=== PATIENT | female | born 1965 | race Caucasian/White ===

== ENCOUNTER 2017-06-20 16:28 | Emergency (ER) | payer MEDICAID ==
[~2017-06-20] VITALS: Ht 162.6 cm; Wt 72.6 kg
[2017-06-20 17:25] VITALS: Ht 162.6 cm; Wt 72.6 kg
[2017-06-20 21:42] VITALS: BP 120/77
== END 2017-06-20 21:42 | disposition home or self-care (01) ==
LOC: ED 16:28
DX: J40 Bronchitis, not specified as acute or chronic (principal)

== ENCOUNTER 2018-08-06 18:38 | Emergency (ER) | payer OTHER ==
[~2018-08-06] VITALS: Ht 167.6 cm; Wt 83.0 kg
[2018-08-06 19:08] VITALS: Ht 167.6 cm; Wt 83.0 kg
[2018-08-06 20:39] LABS: BASOPHIL % 0.3 % (0-2); PLATELET COUNT 273 x10^3mcL (130-400); RED CELL DISTRIBUTION WIDTH 12.4 % (11.5-14.5)
[2018-08-06 20:53] LABS: CALCIUM 8.6 mg/dL (8.5-10.1); CARBON DIOXIDE 29.5 mmol/L (21-32); CHLORIDE SERUM 106 mmol/L (98-107); CREATININE SERUM 0.7 mg/dL (0.6-1.0); GFR1 > 60 mL/min; GLUCOSE SERUM 98 mg/dL (74-106); SODIUM SERUM 143 mmol/L (136-145)
[2018-08-06 20:58] LABS: ALBUMIN 4.2 g/dL (3.4-5.0); ALKALINE PHOSPHATASE 122 U/L (46-116); ALT/SGPT 48 U/L (14-59); AST/SGOT 28 U/L (15-37); BILIRUBIN TOTAL 0.2 mg/dL (0.20-1.00); TOTAL PROTEIN, SERUM 7.8 g/dL (6.4-8.2)
[2018-08-06 22:06] LABS: microscopic required? NO
[2018-08-06 22:39] LABS: UA SPECIFIC GRAVITY 1.015 (1.005-1.035); urine erythrocyte NEGATIVE (NEGATIVE)
[2018-08-07] VITALS: BP 103/62
== END 2018-08-07 | disposition home or self-care (01) ==
LOC: ED 18:38
PROVIDERS: Emergency Medicine
DX: B34.9 Viral infection, unspecified (principal); M79.605 Pain in left leg; M79.604 Pain in right leg
CPT/HCPCS: 87804; J0780; J1885; J7030; Q0092

== ENCOUNTER 2019-02-20 23:04 | Emergency (ER) | payer OTHER ==
[~2019-02-20] VITALS: Ht 162.6 cm; Wt 77.1 kg
[2019-02-21 00:33] VITALS: BP 126/80
== END 2019-02-21 00:33 | disposition home or self-care (01) ==
LOC: ED 23:04
DX: H92.01 Otalgia, right ear (principal); H92.21 Otorrhagia, right ear